=== PATIENT | male | born 1995 | race Caucasian/White ===

== ENCOUNTER 2017-06-24 15:03 | Emergency (ER) | payer SELFPAY ==
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
== END 2017-06-24 15:50 | disposition home or self-care (01) ==
LOC: SCSER 15:03
DX: R05 Cough (principal); F17.210 Nicotine dependence, cigarettes, uncomplicated; F41.9 Anxiety disorder, unspecified; F31.9 Bipolar disorder, unspecified; F44.81 Dissociative identity disorder
CPT/HCPCS: 71020

== ENCOUNTER 2017-06-29 13:30 | Emergency (ER) | payer SELFPAY | END 2017-06-29 19:53 | disposition left against medical advice (07) | LOC: ERS 13:30 | DX: Z53.21 Procedure and treatment not carried out due to patient leaving prior to being seen by health care provider (principal) | CPT/HCPCS: 93005 ==

== ENCOUNTER 2017-09-24 01:26 | Emergency (ER) | payer SELFPAY ==
[2017-09-24] MEDS ORDERED: Fentanyl 100 MCG/2 ML VIAL ONE (01:46)
[2017-09-24] MEDS ORDERED: Lorazepam 2 MG/ML VIAL ONE (01:46)
[2017-09-24] MEDS ORDERED: Acetaminophen/Codeine 30-300mg Tablet ONE (04:12)
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
== END 2017-09-24 04:00 | disposition home or self-care (01) ==
LOC: ERS 01:26
DX: S42.101A Fracture of unspecified part of scapula, right shoulder, initial encounter for closed fracture (principal); F41.0 Panic disorder [episodic paroxysmal anxiety]; F31.9 Bipolar disorder, unspecified; F17.210 Nicotine dependence, cigarettes, uncomplicated; V29.9XXA Motorcycle rider (driver) (passenger) injured in unspecified traffic accident, initial encounter
CPT/HCPCS: 96374; 96375; J2060; J3010

== ENCOUNTER 2018-10-02 18:08 | Inpatient (IN) | payer SELFPAY ==
[2018-10-02 18:51] LABS: Hemoglobin 16.8 g/dL (14.0-18.0); Mean Corpuscular HGB CONC 32.1 g/dL (32.0-36.0); Mean Corpuscular Hemoglobin 29.7 pg (27.0-31.0); Mean Corpuscular Volume 92.6 fL (78.0-98.0); Mean Platelet Volume 7.7 fL (7.4-10.4); Platelet Count 179 thou/uL (130-400); RBC Distribution Width 12.2 % (11.5-14.5); Red Blood Cell (RBC) Count 5.65 mill/uL (4.70-6.10); White Blood Cell (WBC) Count 5.1 thou/uL (4.8-10.8)
[2018-10-02 19:03] LABS: ALT (SGPT) 3236 U/L (8-55); AST (SGOT) 1493 U/L (5-34); Albumin 4.1 g/dL (3.5-5.0); Alkaline Phosphatase 214 U/L (40-150); Anion Gap 11 mmol/L (10-20); BUN (Urea Nitrogen) 6 mg/dL (8.9-20.6); Bilirubin, Total 7.7 mg/dL (0.2-1.2); Calc. Creatinine Clearance 0 mL/min (70-130); Calcium 9.6 mg/dL (7.8-10.44); Carbon Dioxide 34 mmol/L (22-29); Chloride 97 mmol/L (98-107); Estimated GFR-MDRD Greater than 90; Globulin 3.2 g/dL (2.4-3.5); Glucose 86 mg/dL (70-105); Potassium 4.3 mmol/L (3.5-5.1); Protein, Total 7.3 g/dL (6.0-8.3); Sodium 138 mmol/L (136-145)
[2018-10-02 19:08] LABS: Band 8 % (5-11); Eosinophils 3 % (0-10); Lymphocytes 39 % (21-51); MDiff Complete? YES; Monocytes 6 % (0-10); Neutrophil 26 % (42-75); Ovalocytes SLIGHT = 2-5 cells (100X) (0-1/hpf); Platelet Morphology Comment Appears Adequate; Reactive Lymphocytes 18 % (0-10)
[2018-10-02 21:25] LABS: Acetaminophen Less than 6.0 mcg/mL (10.0-30.0); Alcohol Less than 10 mg/dL (Less than 10); Salicylate Less than 8.0 mg/dL (15.0-30.0)
[2018-10-02] MEDS ORDERED: Ondansetron ODT 4 MG TAB ONE (21:43)
[2018-10-02] MEDS ORDERED: Ketorolac Tromethamine 30 MG/ML VIAL ONE (22:07)
--- NOTE | 2018-10-02 22:14 | ULT ---
RIGHT UPPER QUADRANT ULTRASOUND: 10/02/18 INDICATION: Epigastric and right upper quadrant pain with nausea and vomiting. FINDINGS: There is incomplete distention of the gallbladder. The wall of the gallbladder is borderline in size, with mixed echogenicity that could relate to component of gallbladder wall edema. No shadowing sherry lithiasis is seen. No focal hepatic lesion. Aponte's sign is reported as positive by the hebrew teacher. Common duct is normal measuring between 2 and 3 mm in diameter. No overt hydronephrosis of the image d right kidney. IMPRESSION: Borderline sized gallbladder wall, of mixed echogenicity. There is a positive Aponte's sign reported by the hebrew teacher. Recommend clinical correlation to exclude evidence of cholecystitis. POS: [facility]
[2018-10-02 22:40] LABS: Prothrombin Time 12.8 SEC (12.0-14.7)
[2018-10-02 23:42] LABS: HBCM Index 0.37 S/CO (0-0.79); HBSAg Index 0.32 S/CO (0-0.99); Hep B Surf Ag Non-Reactive S/CO (NonReactive); Hep C IgG Ab Non-Reactive (NonReactive); Hep C Index 0.21 S/CO (0-0.79); Hepatitis B Core IgM Abs Non-Reactive (NonReactive)
[2018-10-02 23:44] LABS: Hep A IgM AB Reactive (NonReactive); Hep A IgM S/CO 10.96 S/CO (0-0.79)
[2018-10-03] MEDS ORDERED: Senokot S 8.6-50 MG TAB PO PRN (02:45)
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
[2018-10-03 05:04] LABS: ALT (SGPT) 2336 U/L (8-55); AST (SGOT) 956 U/L (5-34); Albumin 3.3 g/dL (3.5-5.0); Alkaline Phosphatase 172 U/L (40-150); Anion Gap 15 mmol/L (10-20); BUN (Urea Nitrogen) 6 mg/dL (8.9-20.6); Bilirubin, Total 6.9 mg/dL (0.2-1.2); Calc. Creatinine Clearance 0 mL/min (70-130); Calcium 8.6 mg/dL (7.8-10.44); Carbon Dioxide 28 mmol/L (22-29); Chloride 100 mmol/L (98-107); Estimated GFR-MDRD Greater than 90; Globulin 2.5 g/dL (2.4-3.5); Glucose 84 mg/dL (70-105); Potassium 3.7 mmol/L (3.5-5.1); Protein, Total 5.8 g/dL (6.0-8.3); Sodium 139 mmol/L (136-145)
[2018-10-03 05:29] LABS: Band 2 % (5-11); Eosinophils 2 % (0-10); Hemoglobin 14.4 g/dL (14.0-18.0); Lymphocytes 50 % (21-51); MDiff Complete? YES; Mean Corpuscular HGB CONC 32.1 g/dL (32.0-36.0); Mean Corpuscular Hemoglobin 29.9 pg (27.0-31.0); Mean Corpuscular Volume 93.2 fL (78.0-98.0); Monocytes 7 % (0-10); Neutrophil 39 % (42-75); Platelet Count 151 thou/uL (130-400); Platelet Morphology Comment Appears Adequate; RBC Distribution Width 12.2 % (11.5-14.5); White Blood Cell (WBC) Count 4.5 thou/uL (4.8-10.8)
[2018-10-03] MEDS: Ketorolac Tromethamine 10 MG TAB PO SCH ×4 (06:03→23:09)
[2018-10-03] MEDS: Sodium Chloride 0.9% 1,000 ML IV SCH ×2 (06:05→16:57)
[2018-10-03] MEDS ORDERED: Famotidine/PF 20 mg/2ml Vial ONE ×2 (08:12→08:38)
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
[2018-10-03] MEDS: Famotidine/PF 20 mg/2ml Vial SLOW IVP SCH ×2 (08:42→20:15)
[2018-10-03] MEDS ORDERED: Ketorolac Tromethamine 30 MG/ML VIAL ONE (11:25)
[2018-10-03 14:27] VITALS: BMI 19.8
--- NOTE | 2018-10-03 14:51 | CON ---
DATE OF CONSULTATION: 10/03/2018 REASON FOR CONSULTATION: Elevation of liver enzyme and abdominal pain. HISTORY OF PRESENT ILLNESS: Mr. Wu is a 23-year-old man, who presented to the ER with 4-day history of persistent nausea, vomiting, and increasing abdominal pain. The pain is localized in the upper abdomen favoring the right side. He has had nausea and vomiting, but has improved over the last 24 hours. He reports having orange colored stool, but no diarrhea. Over the last four days, he also noted concurrent very dark urine. He denies fevers. He has no travel history other than to [place]. There is no other high risk activity or ingestion of raw sea foods. There was no ingestion of oysters. The patient does have history of heavy alcohol consumption in the past, but has abstained for the last six months. He is otherwise healthy. PAST MEDICAL HISTORY: 1. Anxiety disorder. 2. Previous psychiatric history with bipolar and panic attacks. 3. No medical illness. PAST SURGICAL HISTORY: No prior surgery. SOCIAL HISTORY: The patient does have tobacco usage. No illicit drug use. Formally heavy drinker, abstained for last six months. FAMILY HISTORY: Negative for any known GI problem, liver disease, or GI malignancy. ALLERGIES: NONE. MEDICATIONS: None. REVIEW OF SYSTEMS: 10-point review of systems did not show any other pertinent positives or negatives. PHYSICAL EXAMINATION: VITAL SIGNS: Temperature is 97.6, blood pressure 100/50, pulse of 52. GENERAL: He is alert, conversant, no distress. HEENT: Shows bilateral icteric sclerae. Oropharynx clear. NECK: Supple. CV: Shows normal S1 and S2. Regular rate and rhythm. CHEST: Shows normal breath sounds. ABDOMEN: Soft. Multiple scar tissue around the torso and extremities. There is no hepatomegaly; however, liver edge is tender. He has no splenomegaly. He has active bowel sounds. EXTREMITIES: Show no edema. DIAGNOSTIC DATA: Abdominal ultrasound showed no gallstone. No pericholecystic fluid. Common duct measured 3 mm. LABORATORY DATA: WBC 4.5, hemoglobin 14.4, and platelet count of 151. Electrolytes within normal range. AST 1493, now down to 956. ALT 3236, now down to 2336. Bilirubin is 6.9, lipase 77, alkaline phosphatase 172. Screen for salicylate, acetaminophen, and alcohol were negative. Hepatitis panel showed acute hepatitis A IgM antibody positive. ASSESSMENT: Acute hepatitis A infection with clinical symptom with nausea, vomiting, and abdominal pain. Clinically, he is better. Biochemically, his liver enzymes and bilirubin are trending down. Synthetic function appears to be intact with normal prothrombin time. Anticipate good outcome. RECOMMENDATIONS: 1. Supportive care. 2. Would advanced diet. 3. Antiemetics if nausea and vomiting returns. 4. Continue Toradol for his right upper quadrant pain, which is likely from capsular innervation from his acute hepatitis. 5. Anticipate discharge in 1 to 2 days. Job ID: [id number] [facility]
[2018-10-04] MEDS: Ketorolac Tromethamine 10 MG TAB PO SCH ×3 (05:11→17:06)
[2018-10-04] MEDS: Sodium Chloride 0.9% 1,000 ML IV SCH ×2 (05:12→17:06)
[2018-10-04] MEDS: Promethazine HCl 25 MG/ML VIAL IM/IV PRN ×2 (07:55→21:42)
[2018-10-04] MEDS: Famotidine/PF 20 mg/2ml Vial SLOW IVP SCH ×2 (08:02→21:42)
[2018-10-04 08:57] LABS: ALT (SGPT) 1750 U/L (8-55); AST (SGOT) 637 U/L (5-34); Albumin 3.2 g/dL (3.5-5.0); Alkaline Phosphatase 161 U/L (40-150); Anion Gap 10 mmol/L (10-20); BUN (Urea Nitrogen) 7 mg/dL (8.9-20.6); Bilirubin, Direct 5.8 mg/dL (0.1-0.3); Bilirubin, Total 7.1 mg/dL (0.2-1.2); Calc. Creatinine Clearance 121 mL/min (70-130); Calcium 8.6 mg/dL (7.8-10.44); Carbon Dioxide 29 mmol/L (22-29); Chloride 106 mmol/L (98-107); Estimated GFR-MDRD Greater than 90; Glucose 78 mg/dL (70-105); Potassium 3.9 mmol/L (3.5-5.1); Protein, Total 5.5 g/dL (6.0-8.3); Sodium 141 mmol/L (136-145)
--- NOTE | 2018-10-04 11:05 | PDOC.PN ---
- Subjective Encounter Start Date: 10/04/18 Encounter Start Time: 11:03 Mr. Wu was seen today in follow-up of acute hepatitis A. He says he continues to have abdominal pain, and he says he vomited 3 times yesterday, and once this morning. - Objective Resuscitation Status - Order Detail: 10/03/18 02:45 Resuscitation Status Routine Co-Sign Provider: Resuscitation Status: FULL: Full Resuscitation MAR Reviewed: Yes Vital Signs & Weight: Vital Signs (12 hours) Temp Pulse Resp BP BP Pulse Ox 10/04/18 07:36 98.3 F 52 L 16 115/77 100 10/04/18 04:00 98.2 F 62 20 130/73 10/04/18 00:00 98.1 F 58 L 18 120/74 Weight Weight 142 lb 4 oz I&O: 10/03/18 10/04/18 10/05/18 06:59 06:59 06:59 Intake Total 120 Balance 120 Result Diagrams: 10/03/18 04:16 10/04/18 07:46 Phys Exam - Physical Examination HEENT: PERRLA Respiratory: no wheezing, no rales, no rhonchi, clear to auscultation bilateral Cardiovascular: RRR, no significant murmur, no rub Gastrointestinal: soft, no distention, positive bowel sounds + epigastric tenderness, and RUQ tenderness Musculoskeletal: no edema, pulses present Neurological: non-focal, normal sensation Dx/Plan (1) Acute hepatitis A Code(s): B15.9 - HEPATITIS A WITHOUT HEPATIC COMA Status: Acute - Plan * Acute Hepatitis A- slowly resolving- his LFT's are improving * Symptoms are slowly improving. * Continue to monitor in the Hospital on IV fluids/ antiemetics
--- NOTE | 2018-10-04 15:09 | PRG ---
DATE OF SERVICE: 10/04/2018 SUBJECTIVE: The patient subjectively feels better. He still reports significant right upper quadrant pain, described as a bowling ball inside. He reports having nausea, vomiting, and poor appetite, but able to tolerate fluids well. PHYSICAL EXAMINATION: VITAL SIGNS: Temperature is 98.3, blood pressure 115/77, and pulse of 52. GENERAL: He is alert, in no distress. He is lucid. HEENT: Shows anicteric sclerae. Oropharynx clear. NECK: Supple. CV: Shows normal S1 and S2. Regular rate and rhythm. CHEST: Shows a breath sounds. ABDOMEN: Soft and flat. No distention. Moderate tenderness along the right costal margin. No hepatomegaly. He has active bowel sounds. EXTREMITIES: Show no edema. LABORATORY DATA: Bilirubin is 7.1, AST 637, and ALT of 1750. ASSESSMENT: Acute hepatitis A, intact hepatic synthetic function with decreasing liver enzymes. The patient still has significant right upper quadrant pain, which appears to be somewhat out of proportion to me. RECOMMENDATIONS: 1. Continue supportive care, IV fluids, antiemetic control, and Toradol for pain. 2. Anticipate the patient can be discharge in 1 to 2 days. 3. No other diagnostic test is indicated at this point. We will follow. Job ID: [id number]
[2018-10-05] MEDS: Ketorolac Tromethamine 10 MG TAB PO SCH ×2 (01:09→05:45)
[2018-10-05] MEDS: Sodium Chloride 0.9% 1,000 ML IV SCH (05:45)
[2018-10-05] MEDS: Famotidine/PF 20 mg/2ml Vial SLOW IVP SCH (07:49)
[2018-10-05 08:01] VITALS: BP 125/72; TEMP 98.3
[2018-10-05 09:07] LABS: ALT (SGPT) 1383 U/L (8-55); AST (SGOT) 426 U/L (5-34); Albumin 3.2 g/dL (3.5-5.0); Alkaline Phosphatase 183 U/L (40-150); Bilirubin, Direct 6.4 mg/dL (0.1-0.3); Bilirubin, Total 7.9 mg/dL (0.2-1.2); Protein, Total 5.8 g/dL (6.0-8.3)
--- NOTE | 2018-10-05 11:23 | PDOC.PN ---
- Subjective Encounter Start Date: 10/05/18 Encounter Start Time: 11:20 Mr. Wu was seen today in follow-up of hepatitis A. He says the abdominal pain has imrpoved some. He continues to have some nausea. - Objective Resuscitation Status - Order Detail: 10/03/18 02:45 Resuscitation Status Routine Co-Sign Provider: Resuscitation Status: FULL: Full Resuscitation MAR Reviewed: Yes Vital Signs & Weight: Vital Signs (12 hours) Temp Pulse Resp BP Pulse Ox 10/05/18 07:58 98.3 F 52 L 16 125/72 100 Weight Weight 142 lb 4 oz I&O: 10/04/18 10/05/18 10/06/18 06:59 06:59 06:59 Intake Total 120 2019 120 Balance 120 2020 120 Result Diagrams: 10/03/18 04:16 10/04/18 07:46 Phys Exam - Physical Examination HEENT: PERRLA Respiratory: no wheezing, no rales, no rhonchi Cardiovascular: RRR, no significant murmur, no rub Gastrointestinal: soft, non-tender, positive bowel sounds Musculoskeletal: no edema Dx/Plan (1) Acute hepatitis A Code(s): B15.9 - HEPATITIS A WITHOUT HEPATIC COMA Status: Acute - Plan * Hepatitis A- resolving * Stable for discharge home.
--- NOTE | 2018-10-06 01:23 | DIS ---
DATE OF ADMISSION: 10/02/2018 DATE OF DISCHARGE: 10/05/2018 PRIMARY CARE PHYSICIAN: The patient's does not have a primary care physician. DISCHARGE DISPOSITION: Home. PRIMARY DISCHARGE DIAGNOSES: 1. Acute hepatitis A. 2. Generalized anxiety. 3. Bipolar disorder. 4. Multiple personality disorder. DISCHARGE MEDICATIONS: 25 mg q.6 as needed. CODE STATUS: Full code. ALLERGIES: DIPHENHYDRAMINE. PROCEDURES DONE DURING ADMISSION: The patient had an abdominal ultrasound showing a borderline size gallbladder wall. There was a positive Aponte sign for the trend investigator. HOSPITAL COURSE: Mr. Wu is a pleasant 23-year-old gentleman, who presented to the emergency room with severe right upper quadrant pain as well as nausea and vomiting for 4 days. In the emergency room, it was noted that his transaminases were extremely elevated. The AST was 1493, ALT 3236 on presentation, and bilirubin was 7.7. He had a hepatitis panel which was positive for hepatitis IgM antibody. He was admitted and placed on IV fluids and antiemetics. Over the course of the next few days, his symptoms began to subside as well as his liver function test. He was subsequently able to be discharged home. We did explain to him the precautions with regard to hepatitis A as well as his girlfriend who was in the room with him, and given that he is immunocompetent, we expect complete resolution. Job ID: [id number]
== END 2018-10-05 12:15 | disposition home or self-care (01) | DRG 443 ==
LOC: ERS 18:08 → ERHOLD 23:45 → T4-A 10-03 14:00
PROVIDERS: ADMIT Hospitalist; ATTEND Hospitalist
DX: B15.9 Hepatitis A without hepatic coma (principal); F31.9 Bipolar disorder, unspecified; F44.81 Dissociative identity disorder; Z88.8 Allergy status to other drugs, medicaments and biological substances; F41.9 Anxiety disorder, unspecified; F17.210 Nicotine dependence, cigarettes, uncomplicated
CPT/HCPCS: 36415; 76705; 80048; 80053; 80074; 80076; 80307; 82248; 82977; 83690; 85025; 85610; 85730; 96361; 96374; J1885; J2550; Q0162; S0028

== ENCOUNTER 2018-11-15 11:29 | Emergency (ER) | payer SELFPAY ==
[2018-11-15] MEDS ORDERED: Iopamidol 370 76% 100 ML VIAL ONE (12:04)
[2018-11-15] MEDS ORDERED: Ondansetron PF 4 MG/2 ML Vial ONE (12:18)
[2018-11-15] MEDS ORDERED: Morphine 4 MG/ML VIAL ONE (12:18)
[2018-11-15 12:30] LABS: #Eosinphils 0.3 thou/uL (0.0-0.7); #Lymphocytes 1.8 thou/uL (1.20-3.40); #Monocytes 0.5 thou/uL (0.11-0.59); #Neutrophils 8.5 thou/uL (1.40-6.50); %Basophils 0.2 % (0.0-1.0); %Eosinophils 2.8 % (0.0-10.0); %Lymphocytes 16.3 % (21.0-51.0); %Monocytes 4.7 % (0.0-10.0); %Neutrophils 76.1 % (42.0-75.0); Mean Corpuscular HGB CONC 33.4 g/dL (32.0-36.0); Mean Corpuscular Hemoglobin 29.6 pg (27.0-31.0); Mean Corpuscular Volume 88.5 fL (78.0-98.0); Mean Platelet Volume 6.9 fL (7.4-10.4); Platelet Count 311 thou/uL (130-400); RBC Distribution Width 12.6 % (11.5-14.5); Red Blood Cell (RBC) Count 5.41 mill/uL (4.70-6.10); White Blood Cell (WBC) Count 11.2 thou/uL (4.8-10.8)
[2018-11-15 12:45] LABS: ALT (SGPT) 34 U/L (8-55); AST (SGOT) 23 U/L (5-34); Albumin 4.5 g/dL (3.5-5.0); Alkaline Phosphatase 69 U/L (40-150); Anion Gap 12 mmol/L (10-20); BUN (Urea Nitrogen) 13 mg/dL (8.9-20.6); Bilirubin, Total 1.1 mg/dL (0.2-1.2); Calc. Creatinine Clearance 0 mL/min (70-130); Carbon Dioxide 27 mmol/L (22-29); Chloride 104 mmol/L (98-107); Estimated GFR-MDRD Greater than 90; Glucose 75 mg/dL (70-105); Lipase 32 U/L (8-78); Potassium 4.5 mmol/L (3.5-5.1); Protein, Total 7.5 g/dL (6.0-8.3); Sodium 138 mmol/L (136-145)
--- NOTE | 2018-11-15 13:15 | RAD ---
FRONTAL VIEW CHEST: INDICATIONS: Emergency exam. New onset chest pain, right-sided. FINDINGS: The lungs are clear of consolidation. No effusion or pneumothorax. The cardiac silhouette is normal in size. The osseous structures are intact. IMPRESSION: No focal consolidation. POS: [facility]
--- NOTE | 2018-11-15 13:19 | CT ---
ABDOMEN AND PELVIS CT WITH CONTRAST: INDICATION: Abdominal pain. FINDINGS: Imaged lung bases are grossly clear. No acute abnormality of the solid abdominal organs. The bowel is incompletely assessed without enteric contrast. No free air or significant ascites. The urinary bladder is unopacified and mildly distended. The osseous structures are intact. IMPRESSION: No acute abnormalities identified. Note is made, the bowel is incompletely evaluated without the pre sence of enteric contrast. Correlate clinically in this regard. POS: [facility]
--- NOTE | 2018-11-17 12:04 | EKG ---
Test Reason : Blood Pressure : / mmHG Vent. Rate : 066 BPM Atrial Rate : 066 BPM P-R Int : 138 ms QRS Dur : 082 ms QT Int : 388 ms P-R-T Axes : 025 -04 056 degrees QTc Int : 406 ms Normal sinus rhythm with sinus arrhythmia Septal infarct , age undetermined Abnormal ECG Confirmed by CHRIS VO DO [id number]), proposal editor MAXIM LOPEZ ([id number]) on 11/17/2018 12:03:44 PM Referred By: TAVO Confirmed By:CHRIS VO DO
== END 2018-11-15 15:15 | disposition home or self-care (01) ==
LOC: ERS 11:29
DX: R07.81 Pleurodynia (principal); M94.0 Chondrocostal junction syndrome [Tietze]; F41.9 Anxiety disorder, unspecified; F31.9 Bipolar disorder, unspecified; F17.210 Nicotine dependence, cigarettes, uncomplicated
CPT/HCPCS: 36415; 71045; 74177; 80053; 83690; 84484; 85025; 85379; 93005; 96361; 96374; 96375; J2270; J2405; Q9967

== ENCOUNTER 2019-01-29 01:26 | Emergency (ER) | payer SELFPAY ==
[2019-01-29] MEDS ORDERED: Naloxone HCl 0.4 mg/ml Vial ONE (01:31)
[2019-01-29 01:41] LABS: #Basophils 0.1 thou/uL (0.0-0.2); #Eosinphils 0.4 thou/uL (0.0-0.7); #Lymphocytes 2.3 thou/uL (1.20-3.40); #Monocytes 0.4 thou/uL (0.11-0.59); %Basophils 0.9 % (0.0-1.0); %Eosinophils 4.3 % (0.0-10.0); %Lymphocytes 25.2 % (21.0-51.0); %Monocytes 4.1 % (0.0-10.0); %Neutrophils 65.4 % (42.0-75.0); Hemoglobin 15.4 g/dL (14.0-18.0); Mean Corpuscular HGB CONC 33.2 g/dL (32.0-36.0); Mean Corpuscular Hemoglobin 30.7 pg (27.0-31.0); Mean Corpuscular Volume 92.6 fL (78.0-98.0); Mean Platelet Volume 6.7 fL (7.4-10.4); Platelet Count 321 thou/uL (130-400); RBC Distribution Width 12.1 % (11.5-14.5); White Blood Cell (WBC) Count 9.2 thou/uL (4.8-10.8)
[2019-01-29 01:55] LABS: Actual Bicarbonate (HCO3v) 22 mEq/L (22-28); Analyzer IN Cardio ER; Base Excess -2.6 mEq/L (-2.0 to +3.0); Calcium, Ionized 1.15 mmol/L (1.16-1.32); Chloride (ABG LAB) 105 mmol/L (98-106); Hemoglobin (Hb) 16.4 g/dL (13.2-17.3); Sodium 139.9 mmol/L (133-146); pH (venous) 7.39 (7.32-7.43)
[2019-01-29 02:00] LABS: Acetaminophen Less than 6.0 mcg/mL (10.0-30.0); Alcohol 109 mg/dL (Less than 10); Magnesium 2.5 mg/dL (1.6-2.6); Salicylate Less than 8.0 mg/dL (15.0-30.0)
[2019-01-29 02:01] LABS: ALT (SGPT) 16 U/L (8-55); AST (SGOT) 21 U/L (5-34); Albumin 4.7 g/dL (3.5-5.0); Alkaline Phosphatase 59 U/L (40-150); Anion Gap 16 mmol/L (10-20); BUN (Urea Nitrogen) 16 mg/dL (8.9-20.6); Bilirubin, Total 0.2 mg/dL (0.2-1.2); CK (CPK) 179 U/L (30-200); Calc. Creatinine Clearance 0 mL/min (70-130); Calcium 9.8 mg/dL (7.8-10.44); Carbon Dioxide 23 mmol/L (22-29); Chloride 107 mmol/L (98-107); Estimated GFR-MDRD Greater than 90; Glucose 105 mg/dL (70-105); Potassium 3.9 mmol/L (3.5-5.1); Protein, Total 7.7 g/dL (6.0-8.3); Sodium 142 mmol/L (136-145)
[2019-01-29 03:50] LABS: Bilirubin Negative (Negative); Blood, Urine Negative (Negative); Clarity CLEAR (Clear); Glucose, Urine (Dipstick) Negative (Negative); Leukocyte Negative (Negative); Nitrite Negative (Negative); Protein, Urine (Dipstick) Negative (Neg-Trace); Specific Gravity, Urine 1.009 (1.002-1.036); Urobilinogen 0.2 mg/dL (0.2-1.0); pH, Urine 6.5 (5.0-9.0)
[2019-01-29 03:52] LABS: Amphetamine Not Detected (NotDetected); Barbiturates Screen Not Detected (NotDetected); Benzodiazepine Screen Not Detected (NotDetected); Cocaine Metabolite Screen Not Detected (NotDetected); Medtox Control Line Valid? VALID (VALID); Medtox Reader # READER 4; Methadone Not Detected (NotDetected); Methamphetamine Not Detected (NotDetected); Opiate Screen Not Detected (NotDetected); Oxycodone Screen Not Detected (NotDetected); Phencyclidine (PCP) Detected (NotDetected); THC/Cannabinoid Screen Not Detected (NotDetected); Tricyclic Screen Not Detected (NotDetected)
--- NOTE | 2019-01-29 07:34 | RAD ---
Portable frontal chest radiograph: 01/29/2019 COMPARISON: 11/15/2018 HISTORY: Altered mental status FINDINGS: Lungs are clear. Heart and mediastinal contours appear within normal limits. IMPRESSION: No acute findings.
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
== END 2019-01-29 06:17 | disposition home or self-care (01) ==
LOC: ERS 01:26
DX: F16.129 Hallucinogen abuse with intoxication, unspecified (principal); F41.9 Anxiety disorder, unspecified; F17.210 Nicotine dependence, cigarettes, uncomplicated; Z79.899 Other long term (current) drug therapy
CPT/HCPCS: 36415; 36416; 70450; 71045; 80053; 80306; 80307; 81003; 82140; 82330; 82550; 82803; 82805; 83605; 83735; 83930; 84443; 84484; 85014; 85025; 87086; 93005; 96360; 96361; 96374; J2310

== ENCOUNTER 2019-02-20 13:45 | Emergency (ER) | payer SELFPAY ==
--- NOTE | 2019-02-20 15:25 | RAD ---
XR Chest Pa Lat STANDARD HISTORY: Chest pain COMPARISON: 06/24/2017 FINDINGS: The heart size is normal. The lungs are well expanded without focal areas of consolidation, pneumothorax or pleural effusions. No acute osseous abnormalities are seen. IMPRESSION: No radiographic evidence of acute cardiopulmonary process.
== END 2019-02-20 15:57 | disposition home or self-care (01) ==
LOC: ERS 13:45
DX: J02.9 Acute pharyngitis, unspecified (principal); M79.671 Pain in right foot; F41.9 Anxiety disorder, unspecified; F31.9 Bipolar disorder, unspecified; F17.210 Nicotine dependence, cigarettes, uncomplicated
CPT/HCPCS: 71046; 99283

== ENCOUNTER 2019-12-15 18:08 | Emergency (ER) | payer SELFPAY ==
[2019-12-15 18:48] LABS: #Basophils 0.1 thou/uL (0.0-0.2); #Eosinphils 0.7 thou/uL (0.0-0.7); #Lymphocytes 2.8 thou/uL (1.20-3.40); #Monocytes 1.1 thou/uL (0.11-0.59); %Basophils 0.6 % (0.0-1.0); %Eosinophils 4.1 % (0.0-10.0); %Lymphocytes 16.9 % (21.0-51.0); %Monocytes 6.8 % (0.0-10.0); %Neutrophils 71.6 % (42.0-75.0); Hemoglobin 15.9 g/dL (14.0-18.0); Mean Corpuscular HGB CONC 35.1 g/dL (32.0-36.0); Mean Corpuscular Hemoglobin 31.6 pg (27.0-31.0); Mean Corpuscular Volume 89.9 fL (78.0-98.0); Mean Platelet Volume 6.6 fL (7.4-10.4); Platelet Count 343 thou/uL (130-400); Red Blood Cell (RBC) Count 5.02 mill/uL (4.70-6.10); White Blood Cell (WBC) Count 16.7 thou/uL (4.8-10.8)
[2019-12-15] MEDS ORDERED: Morphine 4 MG/ML VIAL ONE ×2 (18:52→20:22)
[2019-12-15] MEDS ORDERED: cefTRIAXone\\ROCEPHIN 2 GM VIAL ONE (19:05)
[2019-12-15] MEDS ORDERED: Cefepime 2 GM VIAL ONE ×2 (19:08→19:09)
[2019-12-15 19:11] LABS: ALT (SGPT) 17 U/L (8-55); AST (SGOT) 13 U/L (5-34); Albumin 4.1 g/dL (3.5-5.0); Alkaline Phosphatase 69 U/L (40-110); Anion Gap 16 mmol/L (10-20); BUN (Urea Nitrogen) 12 mg/dL (8.9-20.6); Bilirubin, Total 0.2 mg/dL (0.2-1.2); Calc. Creatinine Clearance 0 mL/min (70-130); Calcium 9.4 mg/dL (7.8-10.44); Carbon Dioxide 23 mmol/L (22-29); Chloride 102 mmol/L (98-107); Estimated GFR-MDRD Greater than 90; Globulin 3.4 g/dL (2.4-3.5); Glucose 113 mg/dL (70-105); Potassium 4.5 mmol/L (3.5-5.1); Protein, Total 7.5 g/dL (6.0-8.3); Sodium 136 mmol/L (136-145)
[2019-12-15] MEDS ORDERED: Vancomycin 1 GM/200 ML BAG ONE (19:28)
--- NOTE | 2019-12-15 19:35 | RAD ---
RIGHT INDEX FINGER TWO VIEWS: History: Redness, pain, and swelling. FINDINGS: Soft tissue swelling is noted mid distal index finger. No osseous abnormality identified. IMPRESSION: As above. POS: [facility]
[2019-12-15] MEDS ORDERED: cefTRIAXone\\ROCEPHIN 1 GM VIAL ONE (20:29)
== END 2019-12-15 22:06 | disposition home or self-care (01) ==
LOC: ERS 18:08
DX: M65.842 Other synovitis and tenosynovitis, left hand (principal); F31.9 Bipolar disorder, unspecified; F41.0 Panic disorder [episodic paroxysmal anxiety]; F17.210 Nicotine dependence, cigarettes, uncomplicated
CPT/HCPCS: 36415; 80053; 83605; 85025; 85652; 86140; 87040; 96365; 96367; 96375; 96376; J0692; J0696; J2270; J3370

== ENCOUNTER 2020-03-16 13:02 | Emergency (ER) | payer OTHER, SELFPAY ==
[2020-03-16 14:26] LABS: #Basophils 0.1 thou/uL (0.0-0.2); #Eosinphils 0.2 thou/uL (0.0-0.7); #Monocytes 0.8 thou/uL (0.11-0.59); #Neutrophils 5.5 thou/uL (1.40-6.50); %Basophils 0.8 % (0.0-1.0); %Eosinophils 2.2 % (0.0-10.0); %Lymphocytes 31.5 % (21.0-51.0); %Monocytes 8.6 % (0.0-10.0); %Neutrophils 56.9 % (42.0-75.0); Hemoglobin 17.9 g/dL (14.0-18.0); Mean Corpuscular HGB CONC 33.3 g/dL (32.0-36.0); Mean Corpuscular Hemoglobin 29.5 pg (27.0-31.0); Mean Corpuscular Volume 88.5 fL (78.0-98.0); Mean Platelet Volume 7.8 fL (7.4-10.4); Platelet Count 349 thou/uL (130-400); RBC Distribution Width 12.7 % (11.5-14.5); Red Blood Cell (RBC) Count 6.05 mill/uL (4.70-6.10); White Blood Cell (WBC) Count 9.6 thou/uL (4.8-10.8)
[2020-03-16 14:47] LABS: ALT (SGPT) 15 U/L (8-55); AST (SGOT) 23 U/L (5-34); Albumin 5.3 g/dL (3.5-5.0); Alkaline Phosphatase 67 U/L (40-110); Anion Gap 17 mmol/L (10-20); BUN (Urea Nitrogen) 23 mg/dL (8.9-20.6); Bilirubin, Total 0.7 mg/dL (0.2-1.2); Calc. Creatinine Clearance 0 mL/min (70-130); Calcium 10.1 mg/dL (7.8-10.44); Carbon Dioxide 24 mmol/L (22-29); Chloride 95 mmol/L (98-107); Estimated GFR-MDRD 50; Globulin 3.4 g/dL (2.4-3.5); Glucose 77 mg/dL (70-105); Lipase 55 U/L (8-78); Potassium 3.2 mmol/L (3.5-5.1); Protein, Total 8.7 g/dL (6.0-8.3); Sodium 133 mmol/L (136-145)
[2020-03-16 14:59] LABS: Bacteria/HPF None Seen HPF (None Seen); Bilirubin Negative (Negative); Blood, Urine Negative (Negative); Clarity Clear (Clear); Glucose, Urine (Dipstick) Normal (Negative); Ketone, Urine Negative (Negative); Leukocyte Negative Leu/uL (Negative); Nitrite Negative (Negative); Protein, Urine (Dipstick) 50 mg/dL (Neg-Trace); RBC/HPF 0-3 HPF (0-3); Specific Gravity, Urine 1.032 (1.002-1.036); Squamous Epithelial 0-3 HPF (0-3); WBC/HPF 0-3 HPF (0-3); pH, Urine 5.5 (5.0-9.0)
[2020-03-16] MEDS ORDERED: Ondansetron PF 4 MG/2 ML Vial ONE (14:59)
[2020-03-16 15:18] LABS: Amphetamine Detected (NotDetected); Barbiturates Screen Not Detected (NotDetected); Benzodiazepine Screen Not Detected (NotDetected); Cocaine Metabolite Screen Not Detected (NotDetected); Medtox Control Line Valid? VALID (VALID); Medtox Reader # READER 4; Methadone Not Detected (NotDetected); Methamphetamine Detected (NotDetected); Opiate Screen Not Detected (NotDetected); Oxycodone Screen Not Detected (NotDetected); Phencyclidine (PCP) Not Detected (NotDetected); THC/Cannabinoid Screen Not Detected (NotDetected); Tricyclic Screen Not Detected (NotDetected)
[2020-03-16 16:52] LABS: Anion Gap 16 mmol/L (10-20); BUN (Urea Nitrogen) 22 mg/dL (8.9-20.6); Calc. Creatinine Clearance 0 mL/min (70-130); Calcium 9.1 mg/dL (7.8-10.44); Carbon Dioxide 23 mmol/L (22-29); Chloride 101 mmol/L (98-107); Estimated GFR-MDRD 70; Glucose 89 mg/dL (70-105); Potassium 3.9 mmol/L (3.5-5.1); Sodium 136 mmol/L (136-145)
--- NOTE | 2020-03-16 17:02 | ULT ---
EXAM: US Gallbladder RUQ CLINICAL HISTORY: Right upper quadrant pain. COMPARISON: 10/02/2018 FINDINGS: Pancreas: The head and proximal pancreatic body have a normal echotexture Liver:Hepatic parenchyma has a normal echotexture. No hepatic masses or intrahepatic biliary dilatati on. Right hepatic lobe: 15.3 cm Gallbladder: No sonographic evidence of cholelithiasis, gallbladder wall thickening or pericholecysti c fluid. Small amount of sludge is noted within the lumen of the gallbladder. Aponte's sign:Negative Portal Vein: Patent. Appropriate directional flow Bile ducts: 0.3 cm common bile duct diameter Right kidney: No hydronephrosis. Right kidney measures 4.0 x 5.6 x 10.8 cm in length. IMPRESSION: 1. No sonographic evidence of cholelithiasis or cholecystitis. Small amount of sludge is noted within the lumen of the gallbladder.
[2020-03-17 15:27] LABS: SARS-CoV-2 MS2 Positive; SARS-CoV-2 N Gene Negative; SARS-CoV-2 S Gene Negative; SARS-CoV-2 orf1ab Negative
== END 2020-03-16 16:54 | disposition home or self-care (01) ==
LOC: ERS 13:02
DX: E86.0 Dehydration (principal); E87.6 Hypokalemia; E87.1 Hypo-osmolality and hyponatremia; F15.10 Other stimulant abuse, uncomplicated; F41.9 Anxiety disorder, unspecified; F31.9 Bipolar disorder, unspecified; F17.210 Nicotine dependence, cigarettes, uncomplicated
CPT/HCPCS: 36415; 76705; 80053; 80306; 81003; 81015; 83690; 85025; 87635; 94760; 96361; 96374; J2405; U0003